=== PATIENT | male | born 1980 | race African-American/Black ===

== ENCOUNTER 2022-06-19 07:00 | Emergency (ER) | payer SELFPAY ==
[2022-06-19] MEDS ORDERED: Sodium Chloride 0.9% 10 ML Syringe FLUSH PRN (07:43)
[2022-06-19] MEDS ORDERED: Ondansetron 4 MG/2 ML SDV IVPUSH ONE (07:43)
[2022-06-19] MEDS ORDERED: Sodium Chloride 0.9% 1,000 ML IV SCH (07:45)
[2022-06-19] MEDS ORDERED: Dextrose 5%-0.9% NaCl 1,000 ML IV SCH ×2 (07:45→18:15)
[2022-06-19] MEDS ORDERED: HYDROmorphone 1 MG/ML Syringe IVPUSH ONE ×3 (07:49→18:07)
[2022-06-19] MEDS ORDERED: Metoclopramide 10 MG/2 ML SDV IVPUSH ONE ×3 (07:50→18:08)
[2022-06-19] MEDS ORDERED: Cefepime 2 GM in Sodium Chloride 0.9% 50 ML IV ONE (08:58)
[2022-06-19] MEDS ORDERED: metroNIDAZOLE/Normal Saline 500 MG in Premix Bag 1 BAG IV ONE (09:06)
[2022-06-19] MEDS ORDERED: Lactated Ringers 1,000 ML IV SCH (09:15)
[2022-06-19] MEDS: Potassium Chloride 10 MEQ in Premix Bag 1 BAG IV SCH ×4 (09:46→14:10)
[2022-06-19] MEDS ORDERED: Gadobenate Dimeglumine 529 MG/ML 20 ML SDV IVPUSH ONE (09:52)
[2022-06-19] MEDS ORDERED: Sodium Chloride 0.9% 10 ML Syringe FLUSH SCH (10:00)
== END 2022-06-19 19:11 ==
LOC: JD.ED 07:00
DX: K80.63 Calculus of gallbladder and bile duct with acute cholecystitis with obstruction (principal); R17 Unspecified jaundice; R11.14 Bilious vomiting; Z90.49 Acquired absence of other specified parts of digestive tract; Z20.822 Contact with and (suspected) exposure to COVID-19
CPT/HCPCS: 36415; 74183; 76705; 80053; 80143; 81001; 82977; 83605; 83690; 83735; 85025; 85610; 85730; 86140; 87040; 87635; 96361; 96365; 96366; 96367; 96375; 96376; 99285; A9577; J0692; J1170; J2765; J3480; J3490; J7042; J7120; U0002